=== PATIENT | female | born 1965 | race Caucasian/White ===

== ENCOUNTER 2017-11-21 07:58 | Emergency (ER) | payer BC, OTHER ==
[2017-11-21 08:04] VITALS: BP 103/56; PULSE 61; TEMP 98.2; BMI 20.9
--- NOTE | 2017-11-21 09:04 | PDOC ---
History of Present Illness - General Chief Complaint: Injury Stated Complaint: FALL Time Seen by Provider: 11/21/17 08:40 History Source: Patient - History of Present Illness Occurred: reports: just prior to arrival Severity: reports: moderate Upper Extremity Pain Location: right: shoulder Method of Injury: reports: fell Past History - Past Medical History Allergies/Adverse Reactions: Allergies Allergy/AdvReac Type Severity Reaction Status Date / Time No Known Allergies Allergy Verified 11/21/17 08:01 Home Medications: Ambulatory Orders Tramadol HCl 50 mg PO Q6H #15 tablet MDD 200 mg 11/21/17 COPD: No - Suicide/Smoking/Psychosocial Hx Smoking History: Never smoked Have you smoked in the past 12 months: No Information on smoking cessation initiated: No Hx Alcohol Use: No Drug/Substance Use Hx: No Substance Use Type: None Review of Systems - Review of Systems ABD/GI: No: Nausea, Vomiting Musculoskeletal: Yes: Joint Pain. No: Back Pain, Joint Swelling Neurological: No: Headache, Numbness, Tingling, Dizziness *Physical Exam - Vital Signs Last Vital Signs Temp Pulse Resp BP Pulse Ox 98.2 F 61 16 103/56 99 11/21/17 08:02 11/21/17 08:02 11/21/17 08:02 11/21/17 08:02 11/21/17 08:02 - Physical Exam General Appearance: Yes: Appropriately Dressed, Mild Distress HEENT: positive: Normal Voice Neck: positive: Supple. negative: Tender, Decreased range of motion Respiratory/Chest: negative: Respiratory Distress Musculoskeletal: positive: Decreased Range of Motion Extremity: positive: Normal Inspection. negative: Tender, Swelling Integumentary: positive: Dry, Warm Neurologic: positive: Fully Oriented, Alert, Normal Mood/Affect, Motor Strength 5/5 ED Treatment Course - RADIOLOGY Radiology Studies Ordered: Category Date Time Status SHOULDER-RIGHT [RAD] Stat Radiology 11/21/17 08:40 Ordered Medical Decision Making - Medical Decision Making 11/21/17 09:01 52-year-old female status post right hip surgery in childhood, "rotator cuff tear to R shoulder" here with right shoulder pain status post fall. Patient states this a.m. she slipped and fell onto black ice in front of her home. Landed mostly on her right side. States she struck head, but not hard and denies LOC. Had nausea initially that resolved. No vomiting, CHINO or visual changes. Not on blood thinners. Pain mostly located to right scapula area. Denies hip pain or any other injuries. Ambulatory since fall. Patient well- appearing, with no obvious deformity or tenderness on exam but does report pain over scapula area on abduction of right shoulder w/ LROM due to same. Neurovascularly intact. Most likely sprain, rule out fracture. Sling given to patient while in ED. Took Motrin prior to arrival and declines additional pain meds at this time 11/21/17 09:04 11/21/17 09:09 Xray neg for fx or dislocation. Patient states she feels "shaken up and not like herself" after the fall but no headache, nausea, vomiting or dizziness at this time and remains neurologically intact. Though no indication for CT at this time, scan was offered to patient who declines. States "I am just shaken up by the fall and I want to go home and rest". Strict return precautions given to patient. Discharged in stable condition with pain control, sling and also referral as needed *DC/Admit/Observation/Transfer Diagnosis at time of Disposition: Sprain of shoulder, right Qualifiers: Encounter type: initial encounter Shoulder sprain type: unspecified sprain Qualified Code(s): S43.401A - Unspecified sprain of right shoulder joint, initial encounter - Discharge Dispostion Disposition: HOME Condition at time of disposition: Good - Prescriptions Prescriptions: Tramadol HCl 50 mg PO Q6H #15 tablet MDD 200 mg - Referrals Referrals: Estefany Menon MD [Primary Care Provider] - Vishal Sandhu MD [Staff Physician] - - Patient Instructions Printed Discharge Instructions: Shoulder Sprain Additional Instructions: Take medications as prescribed. If pain persists after 2 weeks, monica follow-up with Dr. Sandhu of orthopedics - Post Discharge Activity Forms/Work/School Notes: Back to Work
[2017-11-21] MEDS ORDERED: traMADol HCL 50 MG TABLET PO ONE (09:18)
[2017-11-21] MEDS ORDERED: traMADol HCL 50 MG TABLET ONE (09:40)
== END 2017-11-21 09:47 | disposition home or self-care (01) ==
LOC: JERFT 07:58
DX: S43.401A Unspecified sprain of right shoulder joint, initial encounter (principal); W18.30XA Fall on same level, unspecified, initial encounter; Y93.89 Activity, other specified; Y92.9 Unspecified place or not applicable
CPT/HCPCS: 73030-TC-RT-FY; 99281-25

== ENCOUNTER 2019-07-16 21:37 | Emergency (ER) | payer BC, OTHER ==
[2019-07-16 21:53] VITALS: BMI 25.6
[2019-07-16] MEDS ORDERED: SODIUM CHLORIDE 1,000 ML IV STA (22:15)
[2019-07-16] MEDS ORDERED: METOCLOPRAMIDE HCL INJECTION 10 MG/2 ML VIAL IVPB ONE (22:15)
[2019-07-16] MEDS ORDERED: METOCLOPRAMIDE HCL INJECTION 10 MG/2 ML VIAL ONE (22:26)
--- NOTE | 2019-07-16 22:34 | PDOC ---
Attending Attestation - Resident Resident Name: Judi Ko - ED Attending Attestation I have performed the following: I have examined & evaluated the patient, The case was reviewed & discussed with the resident, I agree w/resident's findings & plan - HPI HPI: 07/16/19 23:10 Pt has meniscus surgery today at 10AM, and she was in postop recovery for a while; she felt ill afterward, and she was given antiemetic meds and she was discharged home. Pt has had nothing to eat or drink and nothing for pain.She woke up at home and started vomiting. She has not had a BM today since before the surgery and she has gas and abd pain. Pt is afebrile. - Physicial Exam PE: 07/16/19 23:12 Exam is normal. Abd soft NT ND No flank pain. Pt has clear lungs and RRR heart S1S2 No edema of her legs or feet. She is moving all her extremities. - Medical Decision Making 07/17/19 00:09 No intracranial lesion seen on CT head. Labs normal. Pt feeling better and she will be discharged home. Heart Score/ECG Review - ECG Intrepretation Rhythm: Regular Rhythm - [place]: Normal - P and IN Prominent R with upright T in V1 (true posterior HI): No Delta Wave(s) Present: No WPW: No - QRS Poor R Wave Progression: No Q Wave Present: No - ST and T Early Repolarization: No Non Specific ST-T Wave changes: No Prolonged Q-T Interval: No - ECG Impressions Normal ECG: Yes Non-specific ST Elevation: No Ischemic Changes: No
--- NOTE | 2019-07-16 22:43 | PDOC ---
History of Present Illness <Sharon Morris - Last Filed: 07/17/19 00:16> - General History Source: Patient, Spouse Exam Limitations: No Limitations - History of Present Illness Initial Comments: 07/16/19 22:39 53yo F with PMH of CHINO, L meniscus tear s/p repair today presenting to ED with complaints of headache, nausea and vomiting. Per , pt was feeling nauseous since the surgery but pt started developing headache 6h ago. Pt states that the headache has gotten worse, she still feels nauseous and has vomited ( nbnb) multiple times. She states that this headache feels like her previous headaches but is more intense. 10/10 does not radiate. Worsened by light and changes in position. Also associated with dizziness and nausea. Denies fevers, chills, changes in vision, numbness/tingling, neck stiffness, fevers. She did not have an LP or epidural. Has not taken medications for this headache or previous headaches. PMD: PMH: seeh hpi PSH: see hpi Meds: none Allergies: nkda <Judi Ko - Last Filed: 07/17/19 07:00> - General Chief Complaint: Headache Stated Complaint: VOMITING Time Seen by Provider: 07/16/19 21:59 Past History <Sharon Morris - Last Filed: 07/17/19 00:16> - Past Medical History COPD: No - Psycho Social/Smoking Cessation Hx Smoking History: Unknown if ever smoked Have you smoked in the past 12 months: No Hx Alcohol Use: No Drug/Substance Use Hx: No Substance Use Type: None <Judi Ko - Last Filed: 07/17/19 07:00> - Past Medical History Allergies/Adverse Reactions: Allergies Allergy/AdvReac Type Severity Reaction Status Date / Time No Known Allergies Allergy Verified 07/16/19 21:52 Home Medications: Ambulatory Orders NK [No Known Home Medication] 07/16/19 Review of Systems - Review of Systems Constitutional: No: Symptoms Reported HEENTM: No: Symptoms Reported Respiratory: No: Symptoms reported Cardiac (ROS): No: Symptoms Reported ABD/GI: Yes: Nausea : No: Symptoms Reported Musculoskeletal: No: Symptoms Reported Integumentary: No: Symptoms Reported Neurological: Yes: See HPI, Headache, Dizziness <Judi Ko - Last Filed: 07/17/19 07:00> *Physical Exam - Vital Signs Last Vital Signs Temp Pulse Resp BP Pulse Ox 98.2 F 105 H 20 127/75 100 07/16/19 21:45 07/16/19 21:45 07/16/19 21:45 07/16/19 21:45 07/16/19 21:45 <Sharon Morris - Last Filed: 07/17/19 00:16> - Vital Signs Last Vital Signs Temp Pulse Resp BP Pulse Ox 98.2 F 105 H 20 127/75 100 07/16/19 21:45 07/16/19 21:45 07/16/19 21:45 07/16/19 21:45 07/16/19 21:45 - Physical Exam General Appearance: Yes: Nourished, Appropriately Dressed, Moderate Distress HEENT: positive: EOMI, LAURA, Other (photophobia, eye movmentes illicits nausea and headache) Neck: positive: Trachea midline, Supple. negative: Lymphadenopathy (R), Lymphadenopathy (L) Respiratory/Chest: positive: Lungs Clear, Normal Breath Sounds. negative: Crackles, Rales, Rhonchi, Stridor, Wheezing Cardiovascular: positive: Regular Rhythm, Regular Rate, S1, S2. negative: Edema , JVD, Murmur Gastrointestinal/Abdominal: positive: Normal Bowel Sounds, Soft. negative: Tender Musculoskeletal: positive: Other (L knee meniscus repair). negative: CVA Tenderness Extremity: positive: Normal Capillary Refill. negative: Pedal Edema, Swelling, Calf Tenderness Integumentary: positive: Normal Color, Dry, Warm Neurologic: positive: sightseeing guide II-XII NML intact, Fully Oriented, Alert, Normal Mood/ Affect, Normal Response, Motor Strength 5/5 <Judi Ko - Last Filed: 07/17/19 07:00> ED Treatment Course - LABORATORY CBC & Chemistry Diagram: 07/16/19 22:50 07/16/19 22:50 - ADDITIONAL ORDERS Additional order review: Laboratory Results 07/16/19 07/16/19 22:50 22:50 Sodium 138 Potassium 4.2 Chloride 105 Carbon Dioxide 25 Anion Gap 8 BUN 9.9 Creatinine 0.7 Est GFR (CKD-EPI)AfAm 116.27 Est GFR (CKD-EPI)NonAf 100.32 Random Glucose 112 H Calcium 9.0 Total Bilirubin 0.7 AST 20 ALT 13 Alkaline Phosphatase 44 L Troponin I < 0.02 Total Protein 6.9 Albumin 3.5 Lipase 68 L 07/16/19 22:50 RBC 3.92 MCV 92.7 MCHC 33.5 RDW 12.8 MPV 8.0 Neutrophils % 73.1 Lymphocytes % 15.5 Monocytes % 11.0 H Eosinophils % 0.0 Basophils % 0.4 - Medications Given in the ED: ED Medications Discontinued Medications Generic Name Dose Route Start Last Admin Trade Name Ciara PRN Reason Stop Dose Admin Diphenhydramine HCl 25 mg 07/16/19 22:15 07/16/19 22:59 Benadryl Injection - IVPUSH 07/16/19 22:16 25 mg ONCE ONE Administration Sodium Chloride 1,000 mls @ 1,000 mls/hr 07/16/19 22:15 07/16/19 22:59 Normal Saline - IV 07/16/19 23:14 1,000 mls/hr ASDIR STA Administration Metoclopramide HCl 10 mg 07/16/19 22:15 07/16/19 22:59 Reglan Injection - IVPB 07/16/19 22:16 10 mg ONCE ONE Administration <Sharon Morris - Last Filed: 07/17/19 00:16> - LABORATORY CBC & Chemistry Diagram: 07/16/19 22:50 07/16/19 22:50 - RADIOLOGY Radiology Studies Ordered: Category Date Time Status HEAD CT WITHOUT CONTRAST [CT] Stat CT Scan 07/16/19 22:15 Ordered <Judi Ko - Last Filed: 07/17/19 07:00> Medical Decision Making - Medical Decision Making 07/17/19 06:58 53yo F presseniting with headache and nausea ddx includes but not limited to meningitis, migraine, mass/malignancy, medication interaction. will order basic labs, ct head, ekg iv fluids, reglan, benadryl, iv tylenol. ct head normal, no pathology. pt feeling better. labs wnl. still feeling nauseous, wll give phenergan. pt feeling better, safe for dc home. will give strict return precautions. pt ambulating. <Judi Ko - Last Filed: 07/17/19 07:00> Discharge - Discharge Information Problems reviewed: Yes - Admission No <Sharon Morris - Last Filed: 07/17/19 00:16> - Discharge Information Problems reviewed: Yes - Admission No <Judi Ko - Last Filed: 07/17/19 07:00> - Discharge Information Clinical Impression/Diagnosis: Dehydration Headache Qualifiers: Headache type: unspecified Headache chronicity pattern: acute headache Intractability: not intractable Qualified Code(s): R51 - Headache Nausea & vomiting Qualifiers: Vomiting type: unspecified Vomiting Intractability: non-intractable Qualified Code(s): R11.2 - Nausea with vomiting, unspecified Condition: Improved Disposition: HOME - Patient Discharge Instructions Patient Printed Discharge Instructions: DI for Dehydration -- Adult, DI for Nausea -- Adult, Nausea and Vomiting-Adult Additional Instructions: You were seen in the emergency room today for headache. Your labs are normal. You can take Tylenol or Advil/Ibuprofen for the headaches as needed. Follow instructions for how to care for your knee as provided by the orthopedist. Come back to the emergency room for worsening headaches, if you pass out, develop fever or if any new concerning symptom develops. thank you
[2019-07-16 23:01] LABS: BASO % 0.4 % (0-2.0); HEMATOCRIT 36.3 % (32.4-45.2); HEMOGLOBIN 12.2 GM/dL (10.7-15.3); LYMPH % 15.5 % (8-40); MCHC 33.5 g/dl (32.0-36.0); MEAN CELL VOLUME 92.7 fl (80-96); NEUT % 73.1 % (42.8-82.8); PLATELET COUNT 308 K/MM3 (134-434); RBC 3.92 M/mm3 (3.60-5.2); RDW 12.8 % (11.6-15.6); WHITE BLOOD COUNT 5.9 K/mm3 (4.0-10.0)
[2019-07-16] MEDS ORDERED: ACETAMINOPHEN 1000 MG/100 ML VIAL (NON FORMULARY) IVPB ONE (23:02)
[2019-07-16 23:38] LABS: LIPASE 68 U/L (73-393)
[2019-07-16 23:41] LABS: ALBUMIN 3.5 g/dl (3.4-5.0); BILIRUBIN,TOTAL 0.7 mg/dL (0.2-1); BLOOD UREA NITROGEN 9.9 mg/dL (7-18); CREATININE 0.7 mg/dL (0.55-1.3); POTASSIUM 4.2 mmol/L (3.5-5.1); TOT PROT 6.9 g/dl (6.4-8.2)
[2019-07-16] MEDS ORDERED: DEXTROSE 50%-WATER - 25 GM/50 ML VIAL IVPUSH ONE (23:48)
[2019-07-16] MEDS ORDERED: PROMETHAZINE HCL 25 MG/1 ML VIAL IVPUSH ONE (23:52)
[2019-07-17] MEDS ORDERED: PROMETHAZINE HCL 25 MG/1 ML VIAL ONE
[2019-07-17] MEDS ORDERED: DEXTROSE 50%-WATER 25 GM/50 ML DISP.SYRIN ONE
[2019-07-17] MEDS ORDERED: ACETAMINOPHEN INJECTION 100 ML IVPB ONE
[2019-07-17] MEDS ORDERED: DEXTROSE 50%-WATER - 25 GM/50 ML VIAL ONE (00:02)
[2019-07-17 01:13] VITALS: BP 110/66; PULSE 88; TEMP 98.4
--- NOTE | 2019-07-18 16:55 | EKG ---
Test Reason : Blood Pressure : / mmHG Vent. Rate : 093 BPM Atrial Rate : 093 BPM P-R Int : 128 ms QRS Dur : 078 ms QT Int : 362 ms P-R-T Axes : 071 079 013 degrees QTc Int : 450 ms NORMAL SINUS RHYTHM NORMAL ECG NO PREVIOUS ECGS AVAILABLE Confirmed by RICHY WILSON MD ([id number]) on 07/18/2019 4:54:55 PM Referred By: Confirmed By:RICHY WILSON MD
== END 2019-07-17 01:15 | disposition home or self-care (01) ==
LOC: JER 21:37
PROC: 3E033NZ Introduction of Analgesics, Hypnotics, Sedatives into Peripheral Vein, Percutaneous Approach (ICD-10-PCS; principal; 2019-07-16)
PROC: 3E033GC Introduction of Other Therapeutic Substance into Peripheral Vein, Percutaneous Approach (ICD-10-PCS; 2019-07-16)
PROC: 3E0337Z Introduction of Electrolytic and Water Balance Substance into Peripheral Vein, Percutaneous Approach (ICD-10-PCS; 2019-07-16)
DX: E86.0 Dehydration (principal); R11.2 Nausea with vomiting, unspecified; R51 Headache; M23.209 Derangement of unspecified meniscus due to old tear or injury, unspecified knee
CPT/HCPCS: 36415; 70450-TC; 80053; 83690; 84484; 85025; 93005; 93010; 99283-25; J0131; J7030